=== PATIENT | male | born 1980 | race Caucasian/White ===

== ENCOUNTER 2019-11-28 10:24 | Inpatient (IN) | payer SELFPAY ==
[~2019-11-28] VITALS: Ht 177.8 cm; Wt 47.6 kg
[2019-11-28 10:37] VITALS: Ht 177.8 cm; Wt 47.6 kg
[2019-11-28 11:28] LABS: PLATELET COUNT 353 x10^3mcL (130-400); RED CELL DISTRIBUTION WIDTH 13.2 % (11.5-14.5)
[2019-11-28 11:58] LABS: CARBON DIOXIDE 7.2 mmol/L (21-32)
[2019-11-28 11:59] LABS: CHLORIDE SERUM 93 mmol/L (98-107); GLUCOSE SERUM 630 mg/dL (74-106); POTASSIUM SERUM 5.4 mmol/L (3.5-5.1); SODIUM SERUM 130 mmol/L (136-145)
[2019-11-28 12:00] LABS: ALBUMIN 3.4 g/dL (3.4-5.0); ALKALINE PHOSPHATASE 194 U/L (46-116); ALT/SGPT 32 U/L (16-63); AMYLASE 70 U/L (25-115); AST/SGOT 27 U/L (15-37); BILIRUBIN TOTAL 0.5 mg/dL (0.20-1.00); CALCIUM 8.8 mg/dL (8.5-10.1); CREATININE SERUM 1.6 mg/dL (0.7-1.3); GFR1 52 mL/min; LIPASE 912 IU/L (73-393); TOTAL PROTEIN, SERUM 6.5 g/dL (6.4-8.2)
[2019-11-28 12:41] LABS: BAND NEUTROPHIL 84 % (0-10); BASOPHIL 0 % (0-2); SEGMENTED NEUTROPHILS 6 % (37-75)
[2019-11-28 12:42] LABS: PLATELET MORPHOLOGY PLATELETS INCREASED; rbc morphology (normal/abnorm) ABNORMAL (NORMAL)
[2019-11-28 15:21] LABS: POTASSIUM SERUM 4.5 mmol/L (3.5-5.1); SODIUM SERUM 136 mmol/L (136-145)
[2019-11-28 15:22] LABS: CALCIUM 7.5 mg/dL (8.5-10.1); CHLORIDE SERUM 99 mmol/L (98-107); CREATININE SERUM 1.3 mg/dL (0.7-1.3); GFR1 > 60 mL/min; GLUCOSE SERUM 414 mg/dL (74-106); MAGNESIUM 2.3 mg/dL (1.8-2.4)
[2019-11-28 15:24] LABS: CARBON DIOXIDE 7.1 mmol/L (21-32)
[2019-11-28 16:49] LABS: CALCIUM 8.3 mg/dL (8.5-10.1); CHLORIDE SERUM 101 mmol/L (98-107); CREATININE SERUM 1.3 mg/dL (0.7-1.3); GFR1 > 60 mL/min; GLUCOSE SERUM 316 mg/dL (74-106); PHOSPHOROUS 1.5 mg/dL (2.5-4.9); POTASSIUM SERUM 5.4 mmol/L (3.5-5.1); SODIUM SERUM 136 mmol/L (136-145)
[2019-11-28 16:50] LABS: CARBON DIOXIDE 10.3 mmol/L (21-32)
[2019-11-28 17:12] LABS: UA SPECIFIC GRAVITY >=1.030 (1.005-1.035); microscopic required? YES; urine erythrocyte 2+ (NEGATIVE)
[2019-11-28 17:13] VITALS: BP 112/73
[2019-11-28 17:33] LABS: AMPHETAMINE QUAL UR NONE DETECTED (See below)
[2019-11-28 19:20] VITALS: BP 106/71
[2019-11-28 20:57] LABS: CALCIUM 7.8 mg/dL (8.5-10.1); CARBON DIOXIDE 16.3 mmol/L (21-32); CHLORIDE SERUM 105 mmol/L (98-107); CREATININE SERUM 1.3 mg/dL (0.7-1.3); GFR1 > 60 mL/min; GLUCOSE SERUM 187 mg/dL (74-106); POTASSIUM SERUM 3.8 mmol/L (3.5-5.1); SODIUM SERUM 139 mmol/L (136-145)
[2019-11-28 20:59] LABS: MAGNESIUM 1.8 mg/dL (1.8-2.4)
[2019-11-28 21:10] LABS: PHOSPHOROUS 0.9 mg/dL (2.5-4.9)
== END 2019-11-28 21:45 | disposition left against medical advice (07) | DRG 871 ==
LOC: ED 10:24 → IC 14:22
PROVIDERS: Emergency Medicine; ADMIT Student in an Organized Health Care Education/Training Program
DX: A41.9 Sepsis, unspecified organism (principal); J18.9 Pneumonia, unspecified organism; E11.10 Type 2 diabetes mellitus with ketoacidosis without coma; N17.0 Acute kidney failure with tubular necrosis; R64 Cachexia; Z68.1 Body mass index [BMI] 19.9 or less, adult; E87.1 Hypo-osmolality and hyponatremia; R65.20 Severe sepsis without septic shock; E87.8 Other disorders of electrolyte and fluid balance, not elsewhere classified; F19.10 Other psychoactive substance abuse, uncomplicated; E87.5 Hyperkalemia; E86.0 Dehydration; Z53.21 Procedure and treatment not carried out due to patient leaving prior to being seen by health care provider; Z88.6 Allergy status to analgesic agent; Z59.0 Homelessness; Z56.0 Unemployment, unspecified; Z79.899 Other long term (current) drug therapy
CPT/HCPCS: 36600; 82962; 87804; G0378; J0696; J1815; J2405; J2543; J3370; J3480; J7030; J7060; Q0092

== ENCOUNTER 2019-11-29 20:50 | Inpatient (IN) | payer SELFPAY ==
[~2019-11-29] VITALS: Ht 177.8 cm; Wt 64.0 kg
[2019-11-29 21:13] VITALS: Ht 177.8 cm; Wt 64.0 kg
--- NOTE | 2019-11-29 21:34 | NUR ---
PT BROUGHT IN BY [facility] FOR "LOW BLOOD SUGAR" UPON ASSESSMENT BY EMS PT BLOOD SUGAR FOUND TO BE HIGH AND SYSTOLIC BP IN THE 90S. PT WAS GIVEN NS BOLUS AND BP IS WNL. UPON ARRIVAL TO ED PT. IS AWAKE AND ALERT. SPEECH IS SLOW AND SLURRED. PT STATES HE TAKES INSULING BUT HAS BEEN NON COMPLAINT FOR APPROX 3 MONTHS. PT TAKEN TO ROOM 4. CHANGED INTO GOWN. BLOOD SUGAR CHECK X 2 AND WAS "HI" PT PLACED ON CM. MSE COMPLETED.
[2019-11-29 22:07] LABS: PLATELET COUNT 286 x10^3mcL (130-400); RED CELL DISTRIBUTION WIDTH 14.1 % (11.5-14.5)
[2019-11-29 22:29] LABS: CHLORIDE SERUM 97 mmol/L (98-107); POTASSIUM SERUM 4.4 mmol/L (3.5-5.1); SODIUM SERUM 136 mmol/L (136-145)
[2019-11-29 22:30] LABS: ALBUMIN 3.1 g/dL (3.4-5.0); ALKALINE PHOSPHATASE 159 U/L (46-116); ALT/SGPT 32 U/L (16-63); AST/SGOT 38 U/L (15-37); BAND NEUTROPHIL 10 % (0-10); BILIRUBIN TOTAL 0.47 mg/dL (0.20-1.00); CALCIUM 8.8 mg/dL (8.5-10.1); CREATININE SERUM 1.4 mg/dL (0.7-1.3); GFR1 > 60 mL/min; MAGNESIUM 3.1 mg/dL (1.8-2.4); METAMYELOCTE 7 % (0-2); MONOCYTE 4 % (0-7); PHOSPHOROUS 5.4 mg/dL (2.5-4.9); SEGMENTED NEUTROPHILS 76 % (37-75); TOTAL PROTEIN, SERUM 6.5 g/dL (6.4-8.2)
[2019-11-29 22:32] LABS: rbc morphology (normal/abnorm) NORMAL (NORMAL)
[2019-11-29 22:33] LABS: CARBON DIOXIDE 7.1 mmol/L (21-32); GLUCOSE SERUM 648 mg/dL (74-106); PLATELET MORPHOLOGY PLATELETS NORMAL
--- NOTE | 2019-11-29 23:35 | NUR ---
PT IN BED WITH IVF, IV ABT AND INSULIN DRIP AT 6ML/HR INFUSING WITHOUT COMPLICATIONS. PT IS A/O X4. RESP E/U. PT STATES HE DOES NOT TAKE HIS MEDS/INSULIN ORDERED. ALL NEEDS MET AT THIS TIME. WILL MONITOR.
[2019-11-29 23:38] LABS: UA SPECIFIC GRAVITY 1.025 (1.005-1.035); microscopic required? YES; urine erythrocyte 2+ (NEGATIVE)
--- NOTE | 2019-11-29 23:59 | NUR ---
REPORT GIVEN TO PING RODRIGUEZ AT [id number]
[2019-11-30] VITALS (8 sets, daily range): BP systolic 101–141; BP diastolic 61–90
--- NOTE | 2019-11-30 | NUR ---
RECIEVED REPORT FROM JENNIFER CLEMENT. NURSING UPDATES. POC DISCUSSED. AWAITING PT ARRIVAL.
--- NOTE | 2019-11-30 00:15 | NUR ---
PT ARRIVED FROM ED VIA [facility] ACCOMPANIED BY NURSE AND EMT. A&OX3. PT ALERT TO PERSON AND PLACE BUT UNABLE TO RECALL TIME. PERRL. RESPONDS TO COMMANDS AND COMMUNICATES NEEDS. EENT FREE OF DISCHARGE. LUNG SOUNDS CLEAR ANIKA. NO S/S OF RESP DISTRESS ON RA. PULSES WEA BUE&BLE. CAP REFILL < 3 SEC. NO EDEMA NOTED. SINUS TACHY. SKIN C/D/I. ABD SOFT AND FLAT. BS ACTIVE X4Q. NO BM @ THIS TIME. LFA/RFA PERIPERAL IV C/D/I. DKA PROTOCOL INSULIN INFUSING @ 6U/HR. PT VOIDS FREEL TO URINAL. PT DENIES PAIN. CALM AND COOPERATIVE @ THIS TIME. GENERALZIED WEAKESS. BS 437.
[2019-11-30 00:24] LABS: AMPHETAMINE QUAL UR POSITIVE (See below)
--- NOTE | 2019-11-30 01:56 | NUR ---
NOTIFIED PER MAYA TO D/C TO DANIELA @ THIS TIME. D/C'D DANIELA @ THIS TIME.
--- NOTE | 2019-11-30 03:00 | NUR ---
PT RESTING CALMLY @ THIS TIME. NO ACUTE CHANGES. WILL CONT TO MONITOR.
--- NOTE | 2019-11-30 04:00 | NUR ---
PT NOTED W/ DEEP BREATHING AT INTERVALS OF A FEW MINS. PT DENIES SOB. WILL CONT TO MONITOR.
[2019-11-30 05:04] LABS: CHLORIDE SERUM 110 mmol/L (98-107); POTASSIUM SERUM 3.6 mmol/L (3.5-5.1); SODIUM SERUM 145 mmol/L (136-145)
[2019-11-30 05:05] LABS: CALCIUM 8.9 mg/dL (8.5-10.1); CARBON DIOXIDE 10.3 mmol/L (21-32); CREATININE SERUM 1.3 mg/dL (0.7-1.3); GFR1 > 60 mL/min; GLUCOSE SERUM 323 mg/dL (74-106); MAGNESIUM 2.6 mg/dL (1.8-2.4); PHOSPHOROUS 1.1 mg/dL (2.5-4.9)
[2019-11-30 05:10] LABS: BASOPHIL % 0.3 % (0-2); PLATELET COUNT 166 x10^3mcL (130-400); RED CELL DISTRIBUTION WIDTH 13.9 % (11.5-14.5)
--- NOTE | 2019-11-30 05:19 | NUR ---
PT W/ 300ML URINE CLEAN YELLOW OUTPUT @ THIS TIME. WILL CONT TO MONITOR. PT DENIES ANY PAIN/BURNING.
--- NOTE | 2019-11-30 07:15 | NUR ---
PATIENT LETHARGIC; ORIENTED TO PERSON AND PLACE WITH SLOW SPEECH. INSULIN DRIP AT 0.1U/KG/HR AND IVF OF NS AT 250ML/HR. IV SITES TO RFA AND LAC. TELE # 5 SHOWS SINUS TACHYCARDIA. CALL LIGHT WITHIN REACH. SIDE RAILS UP X3 AND PADDED. BED IS AT LOWEST POSITION.
--- NOTE | 2019-11-30 09:05 | NUR ---
BS 89; REGULAR INSULIN DRIP WAS TITRATED FROM 0.1U/KG/HR DOWN TO 0.05U/KG/HR AND IVF SWITCHED TO D5 1/2 AT 250 ML/HR PER DKA PROTOCOL.
[2019-11-30 09:55] LABS: CHLORIDE SERUM 115 mmol/L (98-107); CREATININE SERUM 1.2 mg/dL (0.7-1.3); GFR1 > 60 mL/min; GLUCOSE SERUM 161 mg/dL (74-106); POTASSIUM SERUM 3.3 mmol/L (3.5-5.1); SODIUM SERUM 149 mmol/L (136-145)
[2019-11-30 09:56] LABS: CALCIUM 8.8 mg/dL (8.5-10.1); MAGNESIUM 2.5 mg/dL (1.8-2.4); PHOSPHOROUS 1.1 mg/dL (2.5-4.9)
--- NOTE | 2019-11-30 09:56 | NUR ---
DR. FORBES WAS AT BEDSIDE ASSESSING THE PATIENT. UPDATE PROVIDED TO THE DOCTOR BY NURSES.
--- NOTE | 2019-11-30 10:07 | NUR ---
DR. ESTRADA AND THE TEAM ARE MAKING ROUND TO SEE THE PATIENT. UPDATE PROVIED BY NURSES.
--- NOTE | 2019-11-30 12:05 | NUR ---
FINANCIAL ACCOUNTING ANALYST IS AT BEDSIDE TO DRAW BLOOD FOR BMP.
[2019-11-30 13:34] LABS: CALCIUM 8.5 mg/dL (8.5-10.1); CARBON DIOXIDE 17.7 mmol/L (21-32); CHLORIDE SERUM 116 mmol/L (98-107); CREATININE SERUM 1.1 mg/dL (0.7-1.3); GFR1 > 60 mL/min; GLUCOSE SERUM 162 mg/dL (74-106); PHOSPHOROUS 1.2 mg/dL (2.5-4.9); POTASSIUM SERUM 3.1 mmol/L (3.5-5.1); SODIUM SERUM 148 mmol/L (136-145)
[2019-11-30 13:35] LABS: MAGNESIUM 2.1 mg/dL (1.8-2.4)
--- NOTE | 2019-11-30 13:48 | NUR ---
Discount pharmacy card and list to low cost medical clinics given to patient by Akilah.
--- NOTE | 2019-11-30 14:58 | NUR ---
HOMER CAMERA PERSON AT BEDSIDE SPEAKING WITH PATIENT.
--- NOTE | 2019-11-30 16:11 | NUR ---
SENIOR ACCOUNTING SPECIALIST IS AT BEDSIDE TO DRAW BLOOD AGAIN FOR BMP.
--- NOTE | 2019-11-30 17:10 | NUR ---
PATIENT STATING HE WANTED TO LEAVE. EDUCATION PROVIDED TO PATIENT ABOUT DKA AND RISKS OF LEAVING AMA. PATIENT AGREED TO ALLOW US TO CONTINUE WITH DKA PROTOCOL FOR NOW. WILL REINFORCE PATIENT EDUCATION.
[2019-11-30 17:17] LABS: CHLORIDE SERUM 113 mmol/L (98-107); POTASSIUM SERUM 3.1 mmol/L (3.5-5.1); SODIUM SERUM 146 mmol/L (136-145)
[2019-11-30 17:18] LABS: CALCIUM 8.5 mg/dL (8.5-10.1); CARBON DIOXIDE 20.4 mmol/L (21-32); CREATININE SERUM 1.1 mg/dL (0.7-1.3); GFR1 > 60 mL/min; GLUCOSE SERUM 151 mg/dL (74-106); MAGNESIUM 2.2 mg/dL (1.8-2.4); PHOSPHOROUS 1.2 mg/dL (2.5-4.9)
--- NOTE | 2019-11-30 18:50 | NUR ---
PATIENT REMAINS ON DKA PROTOCOL. THE LAST GAP WAS 12.6. PATIENT IS ON D5 1/2 NS AT 200ML/HR AND INSULIN DRIP AT 0.05U/KG/HR. PATIENT WITH FAIR APPETITE AND DID NOT WANT TO HAVE MUCH FOOD AT MEAL TIMES.
--- NOTE | 2019-11-30 19:05 | NUR ---
BS CHECKED 206; IVF D5 1/2 NS TITRATED FROM 200ML/HR DOWN TO 150ML/HR.
--- NOTE | 2019-11-30 19:10 | NUR ---
RECEIVED REPORT FROM STUART RODRIGUEZ. WILL RESUME CARE.
[2019-11-30 21:20] LABS: CALCIUM 8.7 mg/dL (8.5-10.1); CARBON DIOXIDE 20.4 mmol/L (21-32); CHLORIDE SERUM 108 mmol/L (98-107); GFR1 > 60 mL/min; GLUCOSE SERUM 178 mg/dL (74-106); MAGNESIUM 2.1 mg/dL (1.8-2.4); PHOSPHOROUS 1.3 mg/dL (2.5-4.9); SODIUM SERUM 141 mmol/L (136-145)
[2019-11-30 21:22] LABS: POTASSIUM SERUM 2.8 mmol/L (3.5-5.1)
--- NOTE | 2019-11-30 22:42 | NUR ---
PT C/O HAVING TROUBLE SLEEPING. GIVEN AMBIEN 5MG PO.
--- NOTE | 2019-11-30 23:48 | NUR ---
WELT ROUGHER AT BEDSIDE FOR BLOOD DRAW.
[2019-12-01 00:40] LABS: CARBON DIOXIDE 19.9 mmol/L (21-32); CHLORIDE SERUM 111 mmol/L (98-107); GLUCOSE SERUM 107 mg/dL (74-106); SODIUM SERUM 142 mmol/L (136-145)
[2019-12-01 00:41] LABS: CALCIUM 8.4 mg/dL (8.5-10.1); CREATININE SERUM 0.9 mg/dL (0.7-1.3); GFR1 > 60 mL/min; MAGNESIUM 2.1 mg/dL (1.8-2.4); PHOSPHOROUS 1.3 mg/dL (2.5-4.9)
--- NOTE | 2019-12-01 00:41 | NUR ---
ANION GAP 11.1, CLOSED X 1.
[2019-12-01 03:13] VITALS: BP 108/72
--- NOTE | 2019-12-01 05:05 | NUR ---
UNDERGROUND ELECTRICIAN AT BEDSIDE FOR BLOOD DRAW.
[2019-12-01 05:19] LABS: RED CELL DISTRIBUTION WIDTH 13.3 % (11.5-14.5)
[2019-12-01 05:20] LABS: PLATELET COUNT 121 x10^3mcL (130-400)
[2019-12-01 05:44] LABS: BAND NEUTROPHIL 3 % (0-10); BASOPHIL 0 % (0-2); MONOCYTE 1 % (0-7); MYELOCYTE 1 % (0-2); PLATELET MORPHOLOGY PLATELETS NORMAL; SEGMENTED NEUTROPHILS 79 % (37-75); rbc morphology (normal/abnorm) NORMAL (NORMAL)
[2019-12-01 05:49] LABS: CARBON DIOXIDE 24.3 mmol/L (21-32); CHLORIDE SERUM 110 mmol/L (98-107); SODIUM SERUM 143 mmol/L (136-145)
[2019-12-01 05:50] LABS: CALCIUM 8.3 mg/dL (8.5-10.1); CREATININE SERUM 0.8 mg/dL (0.7-1.3); GFR1 > 60 mL/min; GLUCOSE SERUM 85 mg/dL (74-106); PHOSPHOROUS 1.4 mg/dL (2.5-4.9)
[2019-12-01 05:51] LABS: POTASSIUM SERUM 2.9 mmol/L (3.5-5.1)
--- NOTE | 2019-12-01 07:00 | NUR ---
REPORT RECEIVED FROM UMA RODRIGUEZ. ALL QUESTIONS AND CONCERNS ADDRESSED.
--- NOTE | 2019-12-01 07:05 | NUR ---
ANION GAP 8.17, CLOSED X 2. LONG ACTING INSULIN, LANTUS 20U GIVEN.
--- NOTE | 2019-12-01 07:10 | NUR ---
PATIENT RECEIVED LAYING IN BED ASLEEP. OPENS EYES TO VERBAL STIMULI. SPEECH CLEAR. CHEST EXPANSION EVEN AND UNLABORED. IV TO RFA IN PLACE INFUSING INSULIN AT 3U/HR. IV TO LAC IN PLACE INFUSING D5 0.45NS AT 200 ML/HR. BOTH PORTS PATENT WITH NO S/S OF INFILTRATION NOTED. BOWEL SOUNDS PRESENT AND ACTIVE. SCD'S IN PLACE TO BLE. PATIENT C/O GENERALIZED BODY ACHES. PATIENT APPEARS TO BE IN NO APPARENT DISTRESS. WILL CONTINUE TO MONITOR.
--- NOTE | 2019-12-01 07:15 | NUR ---
PATIENT C/O OVERALL BODY ACHES. PATIENT REQUESTING MORPHINE. EDUCATION PROVIDED REGARDING USE OF NARCOTICS. PATIENT OFFERED TYLENOL IN LIEU OF MORPHINE. PATIENT IN AGREEMENT.
--- NOTE | 2019-12-01 07:30 | NUR ---
DR VALERA AT BEDSIDE TO ASSESS PATIENT. UPDATES PROVIDED BY NURSING. PATIENT CALM AND COOPERATIVE WITH CARE.
[2019-12-01 07:43] VITALS: BP 110/77
--- NOTE | 2019-12-01 08:00 | NUR ---
INSULIN DRIP TITRATED OFF AND IVF OF NS INITIATED AT 100 ML/HR.
--- NOTE | 2019-12-01 10:08 | NUR ---
DR ESTRADA AND RESIDENTS ROUNDING AT THIS TIME. POC DISCUSSED WITH PATIENT. ALL QUESTIONS AND CONCERNS ADDRESSED.
--- NOTE | 2019-12-01 10:57 | NUR ---
OVEREDGE MACHINE OPERATOR AT BEDSIDE SPEAKING WITH PATIENT.
--- NOTE | 2019-12-01 11:40 | NUR ---
Initial Nutrition Assessment: IC05 KIMBERLY ROSENBERG HR Dx: DKA, PNA, severe sepsis PMHx: Type 2 DM, polysubstance abuse PSHx: None Labs: K 2.9L, BUN 27H, P 1.4L, A1C 13.2H, WBC 15.6H Meds: D 5%, Humulin, lantus, Pepcid, NS, vancomycin, Zofran, zosyn Diet: CCHO PO intake since admission: (11/30) dinner 20%, lunch 10% Ht: 177.8 cm (70") Wt: 64 kg (141#) BMI: 20.2 kg/m2 Bed scale: 141# IBW: 166# (75 kg) %IBW: 85 UBW: 170# Age: 39/M Food Allergies: NKFA Skin: intact Josue: 17 Edema: none GI: poor appetite Last BM: 11/30 Per H&P, Pt is a 39 yo M homeless with PMH of DM that was diagnosed 1 year ago, not currently taking any medications, who presents with worsening shortness of breath which started 3 weeks ago, chest pain upon inspiration, polydipsia and polyuria. Pt admitted to recent use of fentanyl and methamphetamines use yesterday when admitted here for pneumonia, severe sepsis, and DKA. RD Note (12/01): Patient was drowsy. Patient said that his appetite is coming back. He reported to have lost 30# in 1 month. Per progress note (11/30), Pt left AMA 2 days ago form ICU. He is back today with DKA and PNA. Still on Insulin drip. Pt AMA a day ago form ICU. He came back with altered mental status, still very lethargic. Problem with: N/V/D/C: none Problems with: Chewing: Swallowing: none Current appetite: poor, coming back Recent wt change: lost 30# x 1 month %wt change:17 (significant) Vitamin/Supplement use: none Special diet at home: Regular Physical activity: sedentary Nutrition education given: DM diet education was provided using [facility] handout on 'Type 2 Diabetes Nutrition Therapy'. Concepts like high fiber foods and portion control were discussed. Patient verbalized understanding and did not have any questions at this time. Food-drug interactions: none Education given: n/a Estimated Nutritional Needs Based on current body weight (64 kg) Energy: 1181-6757 kcal/day (30-35 kcal/kg for sepsis) Protein: 76-89 g/day (1.2-1.4 g/kg for sepsis) Fluid: 5898-0528 mL/day (1 mL/kcal) Nutrition Diagnosis: 1. Malnutrition related to poor appetite, medical condition as evidence dby unintentional weight loss 30# x 1month, documented PO <75%. 2. Not ready for diet/ lifestyle change as evidenced by patient not following a diabetic diet as evidenced by A1C 13.2 Intervention 1. Recommend continuing CCHO diet. 2. Recommend ONS Glucerna BID. This will provide additional 440 kcal and 20g protein. 3. Diabetic diet education provided. Discussed with furnace charger Lori. Monitor/Evaluate Goal: PO intake at least 75% of estimated needs Monitor: PO intake, Labs, GI function F/U in 3-5 days as moderate risk 12/04-
--- NOTE | 2019-12-01 11:40 | NUR ---
1. [facility]. 2. Recommend ONS Glucerna BID. This will provide additional 440 kcal and 20g protein. 3. Diabetic diet education provided. Discussed with tree pruner Lori.
--- NOTE | 2019-12-01 13:26 | NUR ---
HOMER CLERK OF SUPERIOR COURT AT BEDSIDE SPEAKING WITH PATIENT.
--- NOTE | 2019-12-01 15:03 | NUR ---
PATIENT TO BE TRANSFERRED TO ROOM 203B. REPORT GIVEN TO MISAEL RODRIGUEZ WITH ALL QUESTIONS AND CONCERNS ADDRESSED.
[2019-12-01 15:40] VITALS: BP 89/54
--- NOTE | 2019-12-01 15:50 | NUR ---
PATIENT HAS ARRIVED TO FLOOR VIA WHEELCHAIR. PATIENT OBSERVED AMBULATING TO BED WITHOUT ASSISTANCE. EXPLAINED TO PATIENT USE OF BED CONTROLS, CALL LIGHT, AND ORIENTED TO ROOM AND SURROUNDINGS. VS STABLE. WILL CONTINUE TO MONITOR AT THIS TIME. ALL QUESTIONS ADDRESSED. CALL LIGHT IN REACH.
--- NOTE | 2019-12-01 16:25 | NUR ---
PATIENT STATES THAT HE WANTS TO LEAVE AMA "TO GET HIS CAR". STATES IT THE ONLY CHANCE HE HAS TO GET HIS CAR FROM THE [place]. NOTIFIED CHARGE NURSE JEFFY AND DR SANTIAGO & DR VÁSQUEZ. DR SANTIAGO IN TO SPEAK WITH PATIENT ABOUT RISKS AND BENEFITS OF LEAVING, PATIENT STATES HE UNDERSTANDS BUT STILL WANTS TO LEAVE. AMA SIGNED, IV CATHETERS REMOVED AND INTACT. PATIENT WITH BELONGINGS ESCORTED DOWNSTAIRS TO LOBBY WITH THIS NURSE.
== END 2019-12-01 16:25 | disposition left against medical advice (07) | DRG 871 ==
LOC: ED 20:50 → IC 23:12 → MU 12-01 15:32
PROVIDERS: Emergency Medicine; ADMIT Student in an Organized Health Care Education/Training Program
DX: A41.9 Sepsis, unspecified organism (principal); J18.9 Pneumonia, unspecified organism; E11.10 Type 2 diabetes mellitus with ketoacidosis without coma; N17.0 Acute kidney failure with tubular necrosis; G92 Toxic encephalopathy; E44.1 Mild protein-calorie malnutrition; R65.20 Severe sepsis without septic shock; F17.200 Nicotine dependence, unspecified, uncomplicated; E83.41 Hypermagnesemia; Z53.29 Procedure and treatment not carried out because of patient's decision for other reasons; E83.39 Other disorders of phosphorus metabolism; Z59.0 Homelessness; Z91.19 Patient's noncompliance with other medical treatment and regimen; Z68.20 Body mass index [BMI] 20.0-20.9, adult; Z79.84 Long term (current) use of oral hypoglycemic drugs
CPT/HCPCS: 82962; 85060; G0378; G0480; J0456; J0696; J1815; J2543; J3370; J3480; J7030; J7050; J7620; Q0092